=== PATIENT | female | born 1990 | race African-American/Black ===

== ENCOUNTER 2016-12-31 19:40 | Emergency (ER) | payer MEDICAID ==
[~2016-12-31] VITALS: Ht 157.5 cm; Wt 54.5 kg
[~2016-12-31 19:40] MED LIST: PROZAC; SEROQUEL
[2016-12-31 20:15] LABS: BASOPHILS % (AUTO) 0.4 % (0.0-2.0); EOSINOPHILS % (AUTO) 1.3 % (1.0-6.0); HEMATOCRIT 42.6 % (36-46); LYMPHOCYTES # (AUTO) 2.8 K/uL (1.0-4.8); MEAN CORPUSCULAR HEMOGLOBIN 31.2 pg (26.0-34.0); MEAN CORPUSCULAR HGB CONC 32.8 G/dL (31.0-37.0); MEAN CORPUSCULAR VOLUME 95 fL (80-100); MONOCYTES # (AUTO) 0.8 K/uL (0.1-1.0); MONOCYTES % (AUTO) 10.7 % (2.0-9.0); NEUTROPHILS # (AUTO) 3.8 K/uL (1.8-7.7); NEUTROPHILS % (AUTO) 50.6 % (40.0-70.0); PLATELET COUNT (AUTO) 250 K/uL (150-450); RED BLOOD CELL COUNT(AUTO) 4.47 MIL/uL (4.00-5.20); RED CELL DISTRIBUTION WIDTH 14.8 % (11.5-14.5); WHITE BLOOD COUNT (AUTO) 7.6 K/uL (4.5-11.0)
[2016-12-31 20:17] VITALS: BP 136/97
[2016-12-31 20:42] LABS: ALANINE AMINOTRANSFERASE 21 U/L (12-78); ALBUMIN 4.6 g/dL (3.4-5.0); ANION GAP 16 mmol/L (8-16); ASPARTATE AMINOTRANSFERASE 21 U/L (15-37); BILIRUBIN,TOTAL 1.1 mg/dL (0.1-1.0); CALCIUM, TOTAL 9.4 mg/dL (8.8-10.5); CARBON DIOXIDE 21 mmol/L (22-29); CHLORIDE 97 mmol/L (98-107); GLOMERULAR FILTR. RATE CALC 56 mL/min (>60); SODIUM SERUM 134 mmol/L (136-145); TOTAL PROTEIN, SERUM 8.7 g/dL (6.4-8.2); UREA NITROGEN, BLOOD 17 mg/dL (7-18)
[2016-12-31 20:45] LABS: POTASSIUM 2.8 mmol/L (3.5-5.1)
== END 2016-12-31 20:56 | disposition left against medical advice (07) ==
LOC: EMS 19:41
DX: F41.9 Anxiety disorder, unspecified (principal); F15.10 Other stimulant abuse, uncomplicated; E87.6 Hypokalemia; F32.9 Major depressive disorder, single episode, unspecified; F43.10 Post-traumatic stress disorder, unspecified
CPT/HCPCS: 36415; 80053; 84703; 85025; 99284; G0480

== ENCOUNTER 2016-12-31 21:34 | Emergency (ER) | payer MEDICAID | END 2016-12-31 22:27 | disposition left against medical advice (07) | LOC: EMS 21:36 | DX: Z53.21 Procedure and treatment not carried out due to patient leaving prior to being seen by health care provider (principal) ==

== ENCOUNTER 2021-10-02 03:52 | Inpatient (IN) | payer MEDICAID, OTHER ==
[~2021-10-02] VITALS: Ht 157.5 cm; Wt 65.8 kg
[2021-10-02] MEDS ORDERED: DiphenhydrAMINE HCL 50 MG/ML VIAL IM ONE (04:00)
[2021-10-02] MEDS ORDERED: LORazepam 2 MG/ML VIAL IM ONE (04:00)
[2021-10-02] MEDS ORDERED: HALOPERIDOL LACTATE 5 MG/ML VIAL IM ONE (04:00)
[2021-10-02 04:47] LABS: BASOPHILS % (AUTO) 0.5 % (0.0-2.0); EOSINOPHILS % (AUTO) 0.1 % (1.0-6.0); HEMATOCRIT 39.4 % (36-46); HEMOGLOBIN 13.7 g/dL (12.0-16.0); LYMPHOCYTES # (AUTO) 1.7 K/uL (1.0-4.8); LYMPHOCYTES % (AUTO) 15.5 % (22.0-44.0); MEAN CORPUSCULAR HEMOGLOBIN 33.2 pg (26.0-34.0); MEAN CORPUSCULAR HGB CONC 34.8 G/dL (31.0-37.0); MEAN CORPUSCULAR VOLUME 96 fL (80-100); MONOCYTES # (AUTO) 1.1 K/uL (0.1-1.0); MONOCYTES % (AUTO) 10.5 % (2.0-9.0); NEUTROPHILS # (AUTO) 7.9 K/uL (1.8-7.7); NEUTROPHILS % (AUTO) 73.4 % (40.0-70.0); PLATELET COUNT (AUTO) 344 K/uL (150-450); RED BLOOD CELL COUNT(AUTO) 4.13 MIL/uL (4.00-5.20); RED CELL DISTRIBUTION WIDTH 13.2 % (11.5-14.5)
[2021-10-02 04:59] LABS: ANION GAP 17 mmol/L (8-16); CALCIUM, TOTAL 9.8 mg/dL (8.8-10.5); CARBON DIOXIDE 22 mmol/L (22-29); CHLORIDE 101 mmol/L (98-107); GLOMERULAR FILTR. RATE CALC > 60 mL/min (>60); GLUCOSE,RANDOM 106 mg/dL (70-110); POTASSIUM 3.7 mmol/L (3.5-5.1); SODIUM SERUM 140 mmol/L (136-145); UREA NITROGEN, BLOOD 10 mg/dL (7-18)
[2021-10-02 05:04] LABS: ALANINE AMINOTRANSFERASE 49 U/L (12-78); ALKALINE PHOSPHATASE 70 U/L (46-116); ASPARTATE AMINOTRANSFERASE 40 U/L (15-37); BILIRUBIN,TOTAL 0.8 mg/dL (0.1-1.0)
[2021-10-02] MEDS ORDERED: QUEtiapine FUMARATE 100 MG TABLET PO PRN (05:45)
[2021-10-02 08:01] LABS: COVID AG,FIA SOURCE NASOPHARYNGEAL
[2021-10-02] MEDS ORDERED: ACETAMINOPHEN 325 MG TABLET PO PRN (16:15)
[2021-10-02] MEDS ORDERED: HydrOXYzine PAMOATE 50 MG CAPSULE PO PRN (16:15)
[2021-10-02] MEDS ORDERED: MAG HYDROX/AL HYDROX/SIMETH ES 30 ML SUSPENSION UDCUP PO PRN (16:15)
[2021-10-02] MEDS ORDERED: PROMETHAZINE HCL 25 MG TABLET PO PRN (16:15)
[2021-10-02] MEDS ORDERED: TUBERCULIN, PURIFIED PROTEIN DERIVATIVE 5 TU/0.1 ML SYRINGE ID ONE (16:15)
[2021-10-02] MEDS ORDERED: LOPERAMIDE HCL 2 MG CAPSULE PO PRN (16:15)
[2021-10-02] MEDS ORDERED: MAGNESIUM HYDROXIDE SUSPENSION 30 ML UDCUP PO PRN (16:15)
[2021-10-02] MEDS: THIAMINE 100 MG TABLET PO SCH (17:12)
[2021-10-02 18:43] VITALS: BP 130/88
[2021-10-03 07:50] LABS: HEMOGLOBIN A1C 5.3 % (3.8-5.6)
[2021-10-03 08:03] LABS: CHOL/HDL RATIO 2.8 (3.9-5.7); FREE T4 (FREE THYROXINE) 1.32 ng/dL (0.76-1.46); THYROID STIMULATING HORMONE 0.41 uIU/mL (0.36-3.74)
[2021-10-03] MEDS: THIAMINE 100 MG TABLET PO SCH ×2 (08:52→17:17)
[2021-10-03] MEDS: MULTIVITAMINS WITH MINERALS, THERAPEUTIC TABLET PO SCH (08:52)
[2021-10-03] MEDS: FOLIC ACID 1 MG TABLET PO SCH (08:52)
[2021-10-03] MEDS: BuPROPion HCL XL 150 MG ER TABLET PO SCH (08:52)
[2021-10-03] MEDS: NALTREXONE HCL 50 MG TABLET PO SCH (08:52)
[2021-10-03] MEDS: OMEGA-3/DHA/EPA/FISH OIL 1,000 MG CAPSULE PO SCH (08:52)
[2021-10-03 08:58] VITALS: BP 115/80
[2021-10-03] MEDS: LORazepam 2 MG TABLET PO PRN (15:05)
[2021-10-03 16:12] VITALS: BP 115/75
[2021-10-03] MEDS ORDERED: TraMADol HCL 50 MG TABLET PO SCH (17:00)
[2021-10-03] MEDS: OLANZapine 5 MG RAPDIS TABLET PO SCH (20:52)
[2021-10-03] MEDS: DIVALPROEX SODIUM 500 MG ER TABLET PO SCH (20:53)
[2021-10-03] MEDS: MELATONIN 5 MG TABLET PO SCH (21:24)
[2021-10-04] MEDS: MULTIVITAMINS WITH MINERALS, THERAPEUTIC TABLET PO SCH (08:53)
[2021-10-04] MEDS: NALTREXONE HCL 50 MG TABLET PO SCH (10:11)
[2021-10-04] MEDS: THIAMINE 100 MG TABLET PO SCH ×2 (10:11→17:28)
[2021-10-04] MEDS: FOLIC ACID 1 MG TABLET PO SCH (10:11)
[2021-10-04] MEDS: BuPROPion HCL XL 150 MG ER TABLET PO SCH (10:11)
[2021-10-04] MEDS: OMEGA-3/DHA/EPA/FISH OIL 1,000 MG CAPSULE PO SCH (10:11)
[2021-10-04] MEDS: OLANZapine 5 MG RAPDIS TABLET PO PRN (17:28)
[2021-10-04] MEDS: DIVALPROEX SODIUM 500 MG ER TABLET PO SCH (20:38)
[2021-10-04] MEDS: OLANZapine 5 MG RAPDIS TABLET PO SCH (20:38)
[2021-10-04] MEDS: MELATONIN 5 MG TABLET PO SCH (20:38)
[2021-10-04] MEDS: OLANZapine 10 MG RAPDIS TABLET PO SCH (21:24)
[2021-10-05 08:30] VITALS: BP 120/88
[2021-10-05] MEDS: FOLIC ACID 1 MG TABLET PO SCH (08:36)
[2021-10-05] MEDS: MULTIVITAMINS WITH MINERALS, THERAPEUTIC TABLET PO SCH (08:36)
[2021-10-05] MEDS: NALTREXONE HCL 50 MG TABLET PO SCH (08:36)
[2021-10-05] MEDS: OMEGA-3/DHA/EPA/FISH OIL 1,000 MG CAPSULE PO SCH (08:36)
[2021-10-05] MEDS: THIAMINE 100 MG TABLET PO SCH ×2 (08:36→17:00)
[2021-10-05] MEDS: BuPROPion HCL XL 150 MG ER TABLET PO SCH (08:36)
[2021-10-05] MEDS: OLANZapine 5 MG RAPDIS TABLET PO PRN ×2 (10:58→17:00)
[2021-10-05] MEDS: LORazepam 2 MG TABLET PO PRN (10:58)
[2021-10-05] MEDS: DIVALPROEX SODIUM 500 MG ER TABLET PO SCH (21:16)
[2021-10-05] MEDS: OLANZapine 10 MG RAPDIS TABLET PO SCH (21:17)
[2021-10-05] MEDS: MELATONIN 5 MG TABLET PO SCH (21:17)
[2021-10-06] MEDS: NALTREXONE HCL 50 MG TABLET PO SCH (09:56)
[2021-10-06] MEDS: OMEGA-3/DHA/EPA/FISH OIL 1,000 MG CAPSULE PO SCH (09:56)
[2021-10-06] MEDS: MULTIVITAMINS WITH MINERALS, THERAPEUTIC TABLET PO SCH (09:56)
[2021-10-06] MEDS: THIAMINE 100 MG TABLET PO SCH ×2 (09:56→16:42)
[2021-10-06] MEDS: FOLIC ACID 1 MG TABLET PO SCH (09:57)
[2021-10-06] MEDS: BuPROPion HCL XL 150 MG ER TABLET PO SCH (09:57)
[2021-10-06] MEDS: GuaiFENesin/D-METHORPHAN [SUGAR-FREE] 200-20MG/10 ML SYRUP UDCUP PO PRN (17:42)
[2021-10-06] MEDS: OLANZapine 10 MG RAPDIS TABLET PO SCH (20:43)
[2021-10-06] MEDS: DIVALPROEX SODIUM 500 MG ER TABLET PO SCH (20:43)
[2021-10-06] MEDS: MELATONIN 5 MG TABLET PO SCH (20:43)
[2021-10-07] MEDS: NALTREXONE HCL 50 MG TABLET PO SCH (09:33)
[2021-10-07] MEDS: OMEGA-3/DHA/EPA/FISH OIL 1,000 MG CAPSULE PO SCH (09:33)
[2021-10-07] MEDS: FOLIC ACID 1 MG TABLET PO SCH (09:34)
[2021-10-07] MEDS: BuPROPion HCL XL 150 MG ER TABLET PO SCH (09:34)
[2021-10-07] MEDS: MULTIVITAMINS WITH MINERALS, THERAPEUTIC TABLET PO SCH (09:34)
[2021-10-07] MEDS: THIAMINE 100 MG TABLET PO SCH ×2 (09:34→15:53)
[2021-10-07] MEDS: GuaiFENesin/D-METHORPHAN [SUGAR-FREE] 200-20MG/10 ML SYRUP UDCUP PO PRN (13:49)
[2021-10-07] MEDS: LORazepam 2 MG TABLET PO PRN (17:45)
[2021-10-07] MEDS: OLANZapine 10 MG RAPDIS TABLET PO SCH (20:42)
[2021-10-07] MEDS: MELATONIN 5 MG TABLET PO SCH (20:43)
[2021-10-07] MEDS: DIVALPROEX SODIUM 500 MG ER TABLET PO SCH (20:43)
[2021-10-08] MEDS: MULTIVITAMINS WITH MINERALS, THERAPEUTIC TABLET PO SCH (08:51)
[2021-10-08] MEDS: OMEGA-3/DHA/EPA/FISH OIL 1,000 MG CAPSULE PO SCH (08:51)
[2021-10-08] MEDS: BuPROPion HCL XL 150 MG ER TABLET PO SCH (08:51)
[2021-10-08] MEDS: NALTREXONE HCL 50 MG TABLET PO SCH (08:52)
[2021-10-08] MEDS: THIAMINE 100 MG TABLET PO SCH ×2 (08:52→16:12)
[2021-10-08] MEDS: FOLIC ACID 1 MG TABLET PO SCH (08:52)
[2021-10-08 09:05] LABS: COVID AG,FIA SOURCE NASOPHARYNGEAL
[2021-10-08] MEDS: LORazepam 2 MG TABLET PO PRN (12:06)
[2021-10-08 16:00] VITALS: BP 140/79
[2021-10-08] MEDS: GuaiFENesin/D-METHORPHAN [SUGAR-FREE] 200-20MG/10 ML SYRUP UDCUP PO PRN (17:10)
[2021-10-08] MEDS: OLANZapine 10 MG RAPDIS TABLET PO SCH (20:09)
[2021-10-08] MEDS: DIVALPROEX SODIUM 500 MG ER TABLET PO SCH (20:09)
[2021-10-08] MEDS: MELATONIN 5 MG TABLET PO SCH (20:10)
[2021-10-09] MEDS: THIAMINE 100 MG TABLET PO SCH ×2 (08:23→16:11)
[2021-10-09] MEDS: MULTIVITAMINS WITH MINERALS, THERAPEUTIC TABLET PO SCH (08:23)
[2021-10-09] MEDS: BuPROPion HCL XL 150 MG ER TABLET PO SCH (08:23)
[2021-10-09] MEDS: OMEGA-3/DHA/EPA/FISH OIL 1,000 MG CAPSULE PO SCH (08:23)
[2021-10-09] MEDS: FOLIC ACID 1 MG TABLET PO SCH (08:23)
[2021-10-09] MEDS: NALTREXONE HCL 50 MG TABLET PO SCH (08:23)
[2021-10-09 16:19] VITALS: BP 124/84
[2021-10-09] MEDS: LORazepam 2 MG TABLET PO PRN (17:36)
[2021-10-09] MEDS: DIVALPROEX SODIUM 500 MG ER TABLET PO SCH (20:04)
[2021-10-09] MEDS: PRAZOSIN HCL 1 MG CAPSULE PO SCH (20:04)
[2021-10-09] MEDS: MELATONIN 5 MG TABLET PO SCH (20:04)
[2021-10-09] MEDS ORDERED: OLANZapine 5 MG RAPDIS TABLET PO SCH (21:00)
[2021-10-10] MEDS: MULTIVITAMINS WITH MINERALS, THERAPEUTIC TABLET PO SCH (08:33)
[2021-10-10] MEDS: FOLIC ACID 1 MG TABLET PO SCH (08:33)
[2021-10-10] MEDS: BuPROPion HCL XL 150 MG ER TABLET PO SCH (08:34)
[2021-10-10] MEDS: THIAMINE 100 MG TABLET PO SCH ×2 (08:34→17:30)
[2021-10-10] MEDS: NALTREXONE HCL 50 MG TABLET PO SCH (08:34)
[2021-10-10] MEDS: OMEGA-3/DHA/EPA/FISH OIL 1,000 MG CAPSULE PO SCH (08:34)
[2021-10-10] MEDS: GuaiFENesin/D-METHORPHAN [SUGAR-FREE] 200-20MG/10 ML SYRUP UDCUP PO PRN ×2 (09:14→18:16)
[2021-10-10] MEDS ORDERED: FluPHENAZine HCL 5 MG TABLET PO PRN (16:00)
[2021-10-10] MEDS: LORazepam 2 MG TABLET PO PRN (17:30)
[2021-10-10] MEDS: TRIHEXYPHENIDYL HCL 2 MG TABLET PO SCH (17:30)
[2021-10-10] MEDS: MELATONIN 5 MG TABLET PO SCH (20:52)
[2021-10-10] MEDS: PRAZOSIN HCL 1 MG CAPSULE PO SCH (20:52)
[2021-10-10] MEDS: DIVALPROEX SODIUM 500 MG ER TABLET PO SCH (20:52)
[2021-10-10] MEDS: FluPHENAZine HCL 5 MG TABLET PO SCH (21:07)
[2021-10-11] MEDS: LORazepam 2 MG TABLET PO PRN ×2 (03:42→17:26)
[2021-10-11] MEDS: THIAMINE 100 MG TABLET PO SCH ×2 (08:08→17:26)
[2021-10-11] MEDS: OMEGA-3/DHA/EPA/FISH OIL 1,000 MG CAPSULE PO SCH (08:08)
[2021-10-11] MEDS: MULTIVITAMINS WITH MINERALS, THERAPEUTIC TABLET PO SCH (08:08)
[2021-10-11] MEDS: BuPROPion HCL XL 150 MG ER TABLET PO SCH (08:09)
[2021-10-11] MEDS: FOLIC ACID 1 MG TABLET PO SCH (08:09)
[2021-10-11] MEDS: TRIHEXYPHENIDYL HCL 2 MG TABLET PO SCH ×3 (08:09→17:26)
[2021-10-11] MEDS: NALTREXONE HCL 50 MG TABLET PO SCH (08:09)
[2021-10-11] MEDS: GuaiFENesin/D-METHORPHAN [SUGAR-FREE] 200-20MG/10 ML SYRUP UDCUP PO PRN (17:55)
[2021-10-11] MEDS: FluPHENAZine HCL 5 MG TABLET PO SCH (20:36)
[2021-10-11] MEDS: PRAZOSIN HCL 1 MG CAPSULE PO SCH (20:37)
[2021-10-11] MEDS: DIVALPROEX SODIUM 500 MG ER TABLET PO SCH (20:37)
[2021-10-11] MEDS: MELATONIN 5 MG TABLET PO SCH (20:37)
[2021-10-11] MEDS ORDERED: FluPHENAZine HCL 5 MG TABLET PO ONE (21:00)
[2021-10-12] MEDS: ZOLPIDEM TARTRATE 10 MG TABLET PO PRN (01:36)
[2021-10-12] MEDS: TRIHEXYPHENIDYL HCL 2 MG TABLET PO SCH ×3 (08:19→16:13)
[2021-10-12] MEDS: NALTREXONE HCL 50 MG TABLET PO SCH (08:19)
[2021-10-12] MEDS: THIAMINE 100 MG TABLET PO SCH (08:19)
[2021-10-12] MEDS: FOLIC ACID 1 MG TABLET PO SCH (08:20)
[2021-10-12] MEDS: BuPROPion HCL XL 150 MG ER TABLET PO SCH (08:20)
[2021-10-12] MEDS: OMEGA-3/DHA/EPA/FISH OIL 1,000 MG CAPSULE PO SCH (08:20)
[2021-10-12] MEDS: MULTIVITAMINS WITH MINERALS, THERAPEUTIC TABLET PO SCH (08:20)
[2021-10-12] MEDS: LORazepam 2 MG TABLET PO PRN ×2 (09:39→19:11)
[2021-10-12] MEDS: GuaiFENesin/D-METHORPHAN [SUGAR-FREE] 200-20MG/10 ML SYRUP UDCUP PO PRN ×2 (09:43→17:11)
[2021-10-12] MEDS ORDERED: THIOTHIXENE 5 MG CAPSULE PO PRN (16:15)
[2021-10-12 16:16] VITALS: BP 133/76
[2021-10-12] MEDS: MELATONIN 5 MG TABLET PO SCH (20:00)
[2021-10-12] MEDS: DIVALPROEX SODIUM 500 MG ER TABLET PO SCH (20:00)
[2021-10-12] MEDS: PRAZOSIN HCL 1 MG CAPSULE PO SCH (20:00)
[2021-10-12] MEDS: THIOTHIXENE 10 MG CAPSULE PO SCH (20:01)
[2021-10-12] MEDS ORDERED: FluPHENAZine HCL 5 MG TABLET PO SCH (21:00)
[2021-10-13] MEDS: LORazepam 2 MG TABLET PO PRN ×2 (04:06→09:14)
[2021-10-13] MEDS: OMEGA-3/DHA/EPA/FISH OIL 1,000 MG CAPSULE PO SCH (09:14)
[2021-10-13] MEDS: NALTREXONE HCL 50 MG TABLET PO SCH (09:14)
[2021-10-13] MEDS: MULTIVITAMINS WITH MINERALS, THERAPEUTIC TABLET PO SCH (09:14)
[2021-10-13] MEDS: TRIHEXYPHENIDYL HCL 2 MG TABLET PO SCH ×3 (09:14→16:14)
[2021-10-13] MEDS: BuPROPion HCL XL 150 MG ER TABLET PO SCH (09:15)
[2021-10-13] MEDS: GuaiFENesin/D-METHORPHAN [SUGAR-FREE] 200-20MG/10 ML SYRUP UDCUP PO PRN ×2 (13:51→19:01)
[2021-10-13] MEDS: DIVALPROEX SODIUM 500 MG ER TABLET PO SCH (20:01)
[2021-10-13] MEDS: MELATONIN 5 MG TABLET PO SCH (20:01)
[2021-10-13] MEDS: PRAZOSIN HCL 1 MG CAPSULE PO SCH (20:01)
[2021-10-13] MEDS: THIOTHIXENE 10 MG CAPSULE PO SCH (20:02)
[2021-10-14] MEDS: OMEGA-3/DHA/EPA/FISH OIL 1,000 MG CAPSULE PO SCH (08:02)
[2021-10-14] MEDS: NALTREXONE HCL 50 MG TABLET PO SCH (08:02)
[2021-10-14] MEDS: MULTIVITAMINS WITH MINERALS, THERAPEUTIC TABLET PO SCH (08:02)
[2021-10-14] MEDS: TRIHEXYPHENIDYL HCL 2 MG TABLET PO SCH ×3 (08:03→16:59)
[2021-10-14] MEDS: BuPROPion HCL XL 150 MG ER TABLET PO SCH (08:03)
[2021-10-14 18:18] VITALS: BP 124/74
[2021-10-14] MEDS: LORazepam 2 MG TABLET PO PRN (18:18)
[2021-10-14] MEDS: PRAZOSIN HCL 1 MG CAPSULE PO SCH (20:43)
[2021-10-14] MEDS: THIOTHIXENE 10 MG CAPSULE PO SCH (20:43)
[2021-10-14] MEDS: DIVALPROEX SODIUM 500 MG ER TABLET PO SCH (20:43)
[2021-10-14] MEDS: MELATONIN 5 MG TABLET PO SCH (20:43)
[2021-10-15] MEDS: ZOLPIDEM TARTRATE 10 MG TABLET PO PRN (01:41)
[2021-10-15] MEDS: LORazepam 2 MG TABLET PO PRN ×3 (01:41→19:30)
[2021-10-15] MEDS: NALTREXONE HCL 50 MG TABLET PO SCH (08:15)
[2021-10-15] MEDS: TRIHEXYPHENIDYL HCL 2 MG TABLET PO SCH ×3 (08:15→17:02)
[2021-10-15] MEDS: MULTIVITAMINS WITH MINERALS, THERAPEUTIC TABLET PO SCH (08:15)
[2021-10-15] MEDS: OMEGA-3/DHA/EPA/FISH OIL 1,000 MG CAPSULE PO SCH (08:15)
[2021-10-15] MEDS: BuPROPion HCL XL 150 MG ER TABLET PO SCH (08:16)
[2021-10-15 12:33] LABS: COVID AG,FIA SOURCE NASOPHARYNGEAL
[2021-10-15] MEDS: DIVALPROEX SODIUM 500 MG ER TABLET PO SCH (20:39)
[2021-10-15] MEDS: PRAZOSIN HCL 1 MG CAPSULE PO SCH (20:39)
[2021-10-15] MEDS: MELATONIN 5 MG TABLET PO SCH (20:39)
[2021-10-15] MEDS: THIOTHIXENE 10 MG CAPSULE PO SCH (20:39)
[2021-10-15] MEDS ORDERED: THIOTHIXENE 10 MG CAPSULE PO ONE (21:00)
[2021-10-15] MEDS ORDERED: QUEtiapine FUMARATE 25 MG TABLET PO PRN (21:45)
[2021-10-16] MEDS: LORazepam 2 MG TABLET PO PRN (03:29)
[2021-10-16] MEDS: BuPROPion HCL XL 150 MG ER TABLET PO SCH (08:27)
[2021-10-16] MEDS: TRIHEXYPHENIDYL HCL 2 MG TABLET PO SCH ×2 (08:27→12:46)
[2021-10-16] MEDS: MULTIVITAMINS WITH MINERALS, THERAPEUTIC TABLET PO SCH (08:27)
[2021-10-16] MEDS: OMEGA-3/DHA/EPA/FISH OIL 1,000 MG CAPSULE PO SCH (08:27)
[2021-10-16] MEDS: NALTREXONE HCL 50 MG TABLET PO SCH (09:00)
[2021-10-16] MEDS ORDERED: DIVA-80 PO (15:12)
[2021-10-16] MEDS ORDERED: NALT50TA PO (15:12)
[2021-10-16] MEDS ORDERED: OMEG-108 PO (15:12)
[2021-10-16] MEDS ORDERED: PRAZ1 PO (15:12)
[2021-10-16] MEDS ORDERED: BUPR-49 PO (15:12)
[2021-10-16] MEDS ORDERED: THIOT10 PO (15:12)
[2021-10-16] MEDS ORDERED: TRIH2TAB3 PO (15:12)
[2021-10-16] MEDS ORDERED: MELA5TAB40 PO (15:12)
[2021-10-16 16:15] VITALS: BP 120/78
[2021-10-16] MEDS ORDERED: THIOTHIXENE 10 MG CAPSULE PO SCH (21:00)
[2021-10-17] MEDS ORDERED: QUET25TA36 PO (11:06)
[2021-10-17] MEDS ORDERED: QUET200T30 PO (11:06)
== END 2021-10-16 17:38 | disposition home or self-care (01) | DRG 750 ==
LOC: EMS 03:53 → 3EI 14:07
PROVIDERS: ADMIT Psychiatry & Neurology Psychiatry; ATTEND Psychiatry & Neurology Psychiatry
DX: F25.1 Schizoaffective disorder, depressive type (principal); D64.9 Anemia, unspecified; Z20.822 Contact with and (suspected) exposure to COVID-19; F19.10 Other psychoactive substance abuse, uncomplicated; Z59.00 Homelessness unspecified
CPT/HCPCS: 80053; 80061; 80164; 83036; 84439; 84443; 85025; 86592; 99291; G0480; J1200; J1630; J2060; Q9967

== ENCOUNTER 2021-10-17 07:33 | Emergency (ER) | payer MEDICAID, OTHER ==
[~2021-10-17] VITALS: Ht 157.5 cm; Wt 59.1 kg
[~2021-10-17 07:33] MED LIST changes: +BUPR-49 PO; +DIVA-80 PO; +MELA5TAB40 PO; +NALT50TA PO; +OMEG-108 PO; +PRAZ1 PO; -PROZAC; -SEROQUEL; +THIOT10 PO; +TRIH2TAB3 PO
[2021-10-17 07:53] LABS: BASOPHILS % (AUTO) 0.6 % (0.0-2.0); EOSINOPHILS % (AUTO) 1.7 % (1.0-6.0); HEMATOCRIT 40.3 % (36-46); HEMOGLOBIN 13.7 g/dL (12.0-16.0); LYMPHOCYTES # (AUTO) 2.8 K/uL (1.0-4.8); LYMPHOCYTES % (AUTO) 41.3 % (22.0-44.0); MEAN CORPUSCULAR HEMOGLOBIN 32.4 pg (26.0-34.0); MEAN CORPUSCULAR HGB CONC 34.1 G/dL (31.0-37.0); MEAN CORPUSCULAR VOLUME 95 fL (80-100); MONOCYTES # (AUTO) 0.8 K/uL (0.1-1.0); MONOCYTES % (AUTO) 12.1 % (2.0-9.0); NEUTROPHILS % (AUTO) 44.3 % (40.0-70.0); PLATELET COUNT (AUTO) 346 K/uL (150-450); RED BLOOD CELL COUNT(AUTO) 4.24 MIL/uL (4.00-5.20); RED CELL DISTRIBUTION WIDTH 13.5 % (11.5-14.5)
[2021-10-17 08:12] LABS: ANION GAP 8 mmol/L (8-16); CALCIUM, TOTAL 8.8 mg/dL (8.8-10.5); CARBON DIOXIDE 29 mmol/L (22-29); CHLORIDE 105 mmol/L (98-107); CREATININE 0.81 mg/dL (0.60-1.30); GLOMERULAR FILTR. RATE CALC > 60 mL/min (>60); GLUCOSE,RANDOM 80 mg/dL (70-110); POTASSIUM 3.8 mmol/L (3.5-5.1); SODIUM SERUM 142 mmol/L (136-145); UREA NITROGEN, BLOOD 7 mg/dL (7-18)
[2021-10-17 08:17] LABS: ALANINE AMINOTRANSFERASE 18 U/L (12-78); ALBUMIN 3.3 g/dL (3.4-5.0); ALKALINE PHOSPHATASE 68 U/L (46-116); ASPARTATE AMINOTRANSFERASE 23 U/L (15-37); BILIRUBIN,TOTAL 0.2 mg/dL (0.1-1.0); HCG,QUANTITATIVE < 1 mIU/mL (0-6); TOTAL PROTEIN, SERUM 8.1 g/dL (6.4-8.2)
[2021-10-17 08:58] LABS: COVID AG,FIA SOURCE NASOPHARYNGEAL
[2021-10-17 09:13] LABS: AMPHET/METH SCREEN,URINE NEGATIVE (NEGATIVE); BARBITURATE SCREEN, URINE NEGATIVE (NEGATIVE); BENZODIAZEPINES SCREEN,URINE NEGATIVE (NEGATIVE); CANNABINOID SCREEN,URINE NEGATIVE (NEGATIVE); COCAINE SCREEN,URINE NEGATIVE (NEGATIVE); METHADONE SCREEN, URINE NEGATIVE (NEGATIVE); OPIATE SCREEN,URINE NEGATIVE (NEGATIVE)
[2021-10-17 09:19] LABS: PHENCYCLIDINE SCREEN,URINE NEGATIVE (NEGATIVE)
[2021-10-17] MEDS ORDERED: QUET25TA36 PO (11:06)
[2021-10-17] MEDS ORDERED: QUET200T30 PO (11:06)
[2021-10-17] MEDS ORDERED: LORazepam 1 MG TABLET PO ONE ×2 (13:00→16:00)
[2021-10-17] MEDS ORDERED: QUEtiapine FUMARATE 25 MG TABLET PO ONE (13:00)
[2021-10-17 18:02] VITALS: BP 121/69
== END 2021-10-17 18:41 | disposition home or self-care (01) ==
LOC: EMS 07:39
DX: R45.851 Suicidal ideations (principal); F41.9 Anxiety disorder, unspecified; F32.9 Major depressive disorder, single episode, unspecified; Z20.822 Contact with and (suspected) exposure to COVID-19; Z59.00 Homelessness unspecified
CPT/HCPCS: 36415; 80053; 80307; 84702; 85025; 87426; 99285; G0480